=== PATIENT | male | born 1935 | race Caucasian/White ===

== ENCOUNTER 2017-03-04 08:37 | Emergency (ER) | payer BC ==
[~2017-03-04] VITALS: Ht 177.8 cm; Wt 80.0 kg
[2017-03-04 08:39] VITALS: BP 174/88; PULSE 80; RESP 16; TEMP 97.9; O2SAT 99
[2017-03-04 09:46] LABS: AUTOMATED NEUTROPHIL # 3.4 TH/MM3 (1.8-7.7); BASOPHIL % 0.4 % (0.0-2.0); HEMATOCRIT 35.9 % (39.0-51.0); HEMO FLAGS DIFF FINAL; LYMPH % 16.1 % (9.0-44.0); LYMPHOCYTE # 0.8 TH/MM3 (1.0-4.8); MEAN CELL VOLUME 87.9 FL (80.0-100.0); MEAN CORPUSCULAR HGB CONC 32.9 % (32.0-36.0); MONO % 11.6 % (0.0-8.0); NEUT % 70.9 % (16.0-70.0); PLATELET COUNT 189 TH/MM3 (150-450); RED BLOOD COUNT 4.08 MIL/MM3 (4.50-5.90); RED CELL DISTRIBUTION WIDTH 13.5 % (11.6-17.2); WHITE BLOOD COUNT 4.7 TH/MM3 (4.0-11.0)
--- NOTE | 2017-03-04 09:48 | PD ---
HPI Chief Complaint: Complaint Time Seen by Provider: 09:38 Travel History International Travel<30 days: No Contact w/Intl Traveler<30days: No Traveled to known affect area: No History of Present Illness HPI This is an 81-year-old male who presents to the emergency department having had a TURP procedure by Dr. Flores 5 weeks ago with persistent hematuria. He intermittently has pain in his lower abdomen and passes blood clots. He was hospitalized at [facility] in the last week and received continuous bladder irrigation. By the time he left he had clear urine, however he noted that he had severe pain in his testicles and scrotum. He went back to the emergency Department the night following discharge and had an ultrasound performed and they told him he had an infection of the back of his testicles and started him on antibiotics. He says over the weekend his pain has been worsening, constant , keeping him up at night, associated with a fever to 102. His pain is at the tip of his penis as well as in his scrotum. PFSH Past Medical History Cardiovascular Problems: Yes (pericarditis) Social History Tobacco Use: No Allergies-Medications (Allergen,Severity, Reaction): Coded Allergies: No Known Allergies (Unverified , 03/04/17) Reported Meds & Prescriptions Reported Meds & Active Scripts Active Reported Vitamin D (Cholecalciferol) 1,000 Unit Tab 1,000 Units PO DAILY Flomax (Tamsulosin HCl) 0.4 Mg Cap 0.4 Mg PO HS Lisinopril 10 Mg Tab 10 Mg PO DAILY Lovastatin 40 Mg Tab 40 Mg PO HS Phenazopyridine (Phenazopyridine HCl) 100 Mg Tab 200 Mg PO Q8H PRN Finasteride 5 Mg Tab 5 Mg PO DAILY Do not crush. Cefdinir 300 Mg Cap 300 Mg PO BID Review of Systems Except as stated in HPI: all other systems reviewed are Neg Physical Exam Narrative GENERAL:Well appearing, no acute distress SKIN: Focused skin assessment warm and dry. HEAD: Atraumatic. Normocephalic. EYES: Pupils equal and round. No injection or drainage. ENT: Moist mucous membranes NECK: Trachea midline. CARDIOVASCULAR: Regular rate and rhythm. No murmur appreciated. RESPIRATORY: Clear to auscultation. Breath sounds equal bilaterally. GASTROINTESTINAL: Abdomen soft, non-tender, nondistended. : Firm tender mass in the right testicle with erythema and tenderness of the scrotum particularly on the posterior aspect of the scrotum, Li catheter bag is full of dark bloody urine MUSCULOSKELETAL: No obvious deformities. NEUROLOGICAL: Awake and alert. No obvious cranial nerve deficits. Moving all extremities. PSYCHIATRIC: Appropriate mood and affect; insight and judgment normal. Data Data Last Documented VS Vital Signs Date Time Temp Pulse Resp B/P Pulse Ox O2 Delivery O2 Flow Rate FiO2 03/04/17 08:39 97.9 80 16 174/88 99 Orders Complete Blood Count With Diff (03/04/17 09:00) Basic Metabolic Panel (Bmp) (03/04/17 09:00) Lactic Acid (03/04/17 09:00) Urinalysis - C+S If Indicated (03/04/17 09:00) Act Partial Throm Time (Ptt) (03/04/17 09:09) Prothrombin Time / Inr (Pt) (03/04/17 09:09) Us Testicles W Doppler (03/04/17 ) Morphine Inj (Morphine Inj) (03/04/17 10:00) Ondansetron Inj (Zofran Inj) (03/04/17 10:00) Sodium Chlorid 0.9% 500 Ml Inj (Ns 500 M (03/04/17 10:00) Urine Culture (03/04/17 09:14) Labs Laboratory Tests Test 03/04/17 09:14 White Blood Count 4.7 TH/MM3 Red Blood Count 4.08 MIL/MM3 Hemoglobin 11.8 GM/DL Hematocrit 35.9 % Mean Corpuscular Volume 87.9 FL Mean Corpuscular Hemoglobin 29.0 PG Mean Corpuscular Hemoglobin 32.9 % Concent Red Cell Distribution Width 13.5 % Platelet Count 189 TH/MM3 Mean Platelet Volume 8.9 FL Neutrophils (%) (Auto) 70.9 % Lymphocytes (%) (Auto) 16.1 % Monocytes (%) (Auto) 11.6 % Eosinophils (%) (Auto) 1.0 % Basophils (%) (Auto) 0.4 % Neutrophils # (Auto) 3.4 TH/MM3 Lymphocytes # (Auto) 0.8 TH/MM3 Monocytes # (Auto) 0.5 TH/MM3 Eosinophils # (Auto) 0.0 TH/MM3 Basophils # (Auto) 0.0 TH/MM3 CBC Comment DIFF FINAL Differential Comment Prothrombin Time 10.2 SEC Prothromb Time International 0.9 RATIO Ratio Activated Partial 30.1 SEC Thromboplast Time Urine Color DARK-BROWN Urine Turbidity HAZY Urine pH 6.5 Urine Specific Chromo 1.008 Urine Protein 100 mg/dL Urine Glucose (UA) NEG mg/dL Urine Ketones NEG mg/dL Urine Occult Blood LARGE Urine Nitrite NEG Urine Bilirubin NEG Urine Urobilinogen LESS THAN 2.0 MG/DL Urine Leukocyte Esterase SMALL Urine RBC /hpf Urine WBC 22 /hpf Urine Squamous Epithelial 2 /hpf Cells Urine Bacteria FEW /hpf Urine Mucus FEW /lpf Microscopic Urinalysis Comment CATH-CULTURE IND Sodium Level 136 MEQ/L Potassium Level 4.1 MEQ/L Chloride Level 104 MEQ/L Carbon Dioxide Level 21.9 MEQ/L Anion Gap 10 MEQ/L Blood Urea Nitrogen 12 MG/DL Creatinine 0.77 MG/DL Estimat Glomerular Filtration 97 ML/MIN Rate Random Glucose 109 MG/DL Lactic Acid Level 0.9 mmol/L Calcium Level 8.6 MG/DL MDM Medical Decision Making Medical Screen Exam Complete: Yes Emergency Medical Condition: Yes Interpretation(s) Afebrile, no tachycardia, hypertensive No leukocytosis Hemoglobin is 11.8 Electrolytes are reassuring Lactic acid is normal Urinalysis: Large amount of blood, some white blood cells Last 24 hours Impressions Scrotum Ultrasound 03/04/17 0000 Signed Impressions: Service Date/Time: Saturday, March 04, 2017 09:59 - CONCLUSION: Hyperemia in the right hemiscrotum, complex hydrocele, and enlargement of the right epididymis likely all from epididymitis and orchitis. Nathan Keenan MD Differential Diagnosis Epididymitis, orchitis, anemia, hematuria Narrative Course This is an 81-year-old male who presents to the emergency department with blood in his urine and swelling and pain in his scrotum. He was placed on a monitor and an IV was established. Labs are obtained which demonstrated normal white blood cell count. Urinalysis demonstrates blood in the urine. He's not acutely obstructed. He has no significant anemia. He is afebrile. Ultrasound of the scrotum demonstrates likely epididymoorchitis. I spoke to Dr. Hodges regarding this patient's frequent emergency department visits. He says that he expects that this patient is going to take a long time to heal and that his hematuria is going to persist. He thinks Levick and would be a better medication than Cefdinir for his current epididymoorchitis. He doesn't feel there is a reason to admit this patient and I agree. He says he' ll follow-up with him in clinic tomorrow which I think is very reasonable. Patient will be discharged home. Diagnosis Primary Impression: Epididymoorchitis Additional Impression: Hematuria Patient Instructions: General Instructions Additional Instructions: If you develop fever, chills, increasing swelling or inability to urinate, lightheadedness or dizziness return to the emergency department. Stop your Cefdinir and started taking Levaquin. Follow-up with Dr. Hodges in the office tomorrow. Med/Other Pt SpecificInfo: Prescription(s) given Scripts Tramadol 50 Mg Tab50 Mg PO Q6H PRN (PAIN) #10 TAB Ref 0 Prov:Elodia Paniagua MD 03/04/17 Levofloxacin (Levaquin)750 Mg Tablet1 Tab PO DAILY 7 Days Prov:Elodia Paniagua MD 03/04/17 Disposition: 01 DISCHARGE HOME Condition: Stable Elodia Paniagua MD Mar 04, 2017 09:48
[2017-03-04] MEDS ORDERED: VITA100064 PO (09:50)
[2017-03-04] MEDS ORDERED: LOVA40TA PO (09:50)
[2017-03-04] MEDS ORDERED: FINA5TAB2 PO (09:50)
[2017-03-04] MEDS ORDERED: LISI10TA3 PO (09:50)
[2017-03-04] MEDS ORDERED: TAMS5CAP PO (09:50)
[2017-03-04] MEDS ORDERED: CEFD300C PO (09:50)
[2017-03-04] MEDS ORDERED: PHEN-426 PO (09:50)
[2017-03-04 09:54] LABS: APTT (PATIENT) 30.1 SEC (24.3-30.1); INTERNATIONAL NORMALIZED RATIO 0.9 RATIO; PROTHROMBIN TIME - PATIENT 10.2 SEC (9.8-11.6)
[2017-03-04] MEDS ORDERED: MORPHINE SULFATE 4 MG/ML INJ IV PUSH ONE (10:00)
[2017-03-04] MEDS ORDERED: SODIUM CHLORID 0.9% 500 ML INJ 500 ML IV ONE (10:00)
[2017-03-04] MEDS ORDERED: ONDANSETRON HCL 4 MG/2 ML VIAL IV PUSH ONE (10:00)
[2017-03-04 10:06] LABS: BACTERIA, URINE FEW /hpf; BLOOD, URINE LARGE (NEG); COMMENT (UR) CATH-CULTURE IND; CULTURE IF INDICATED CATH CULTURE IND; GLUCOSE,URINE NEG (NEG); KETONE, URINE NEG (NEG); MUCUS URINE FEW /lpf (OCC); NITRITE,URINE NEG (NEG); PH, URINE 6.5 (5.0-8.5); SQUAMOUS EPITHELIAL CELL URINE 2 /hpf (0-5)
[2017-03-04 10:07] LABS: URINE COLOR DARK-BROWN (YELLW/STRAW)
[2017-03-04 10:11] LABS: BICARBONATE 21.9 MEQ/L (21.0-32.0); POTASSIUM 4.1 MEQ/L (3.5-5.1)
--- NOTE | 2017-03-04 11:24 | RADRPT ---
EXAM DATE/TIME: 03/04/2017 09:59 [facility] COMPARISON: No previous studies available for comparison. INDICATIONS : Testicle pain. MEDICAL HISTORY : Hypercholesterolemia. Pericarditis. Hypertension. Inguinal hernia. Prostate cancer. Hematuria SURGICAL HISTORY : Pericarditis scar tissue removal. TURP. ENCOUNTER: Initial ACUITY: 1 day PAIN SCORE: 8/10 LOCATION: Bilateral testicles. MEASUREMENTS: RIGHT TESTICLE: 3.2 x 2.6 x 2.6cm LEFT TESTICLE: 4.0 x 2.3 x 1.9cm .1.5 x 2.0 x 1.7 cm 1.1 x 0.9 x 0.6 cm Moderate right Septated. Yes le ft Varicocele seen on lt side andrea 0.2cm right side has a complex hydrocele with septations and increased blood flow. right epi appears enlarged and hypervascular. right ing canal had limited visualization due to swelling and patient pain tolerance. patient states he went to ER at [facility] an was told he has an infection in his right side. FINDINGS: RIGHT TESTICLE: Homogeneous echotexture without intra or extratesticular mass. There is hyperemia seen at the right testicle and right epididymis. The right epididymis is enlarged. The epididymal head region measures 1.5 x 2.0 x 1.7 cm. There is a complex hydrocele. Multiple septations are seen. LEFT TESTICLE: Homogeneous echotexture without intra or extratesticular mass. Blood flow is symmetric and within no rmal limits. No hydrocele. There is a minimal varicocele. Epididymis is within normal limits. SCROTUM: Within normal limits. CONCLUSION: Hyperemia in the right hemiscrotum, complex hydrocele, and enlargement of the right epididymis likely all from epididymitis and orchitis. Nathan Keenan MD on March 04, 2017 at 11:08 Board Certified Radiologist. This report was verified electronically.
[2017-03-04] MEDS ORDERED: TRAM50TA PO (13:05)
[2017-03-04] MEDS ORDERED: LEVA750T9 PO (13:05)
== END 2017-03-04 15:09 | disposition home or self-care (01) ==
LOC: NEPC 08:37
DX: N45.3 Epididymo-orchitis (principal); R31.9 Hematuria, unspecified; R50.9 Fever, unspecified
CPT/HCPCS: 76870; 80048; 81001; 83605; 85025; 85610; 85730; 87086; 93975; 96374; 96375; 99285; J2270; J2405; J7040